=== PATIENT | female | born 1990 | race Caucasian/White ===

== ENCOUNTER 2022-04-20 14:55 | Emergency (ER) | payer SELFPAY ==
[~2022-04-20] VITALS: Ht 162.6 cm; Wt 80.0 kg
[2022-04-20 15:25] VITALS: BP 131/87
[2022-04-20 18:24] LABS: CLARITY URINE TURBID (CLEAR); COLOR URINE RED (YELLOW); KETONES URINE NEGATIVE (NEGATIVE); LEUKOCYTE ESTERASE URINE 3+ (NEGATIVE); NITRITE URINE POSITIVE (NEGATIVE); OCCULT BLOOD URINE 2+ (NEGATIVE); PH URINE 8.5 (4.5-8.0); PROTEIN URINE 2+ (NEGATIVE); SPECIFIC GRAVITY URINE 1.019 (1.005-1.030); UROBILINOGEN URINE 0.2 E.U./dL (0.2-1.0)
[2022-04-20] MEDS ORDERED: CEFP200T13 MT (18:34)
[2022-04-20 18:43] LABS: UCG SCREEN NEGATIVE
[2022-04-20] MEDS ORDERED: CEFTRIAXONE SODIUM 1 G/VIAL IM ONE (18:45)
[2022-04-20] MEDS ORDERED: LIDOCAINE HCL 1% 20ML VIAL (Pyxis) INJ INFIL ONE (18:45)
== END 2022-04-20 19:13 | disposition home or self-care (01) ==
LOC: ER 14:55
DX: N39.0 Urinary tract infection, site not specified (principal); Z97.5 Presence of (intrauterine) contraceptive device; Z87.440 Personal history of urinary (tract) infections
CPT/HCPCS: 81003; 81025; 87077; 87086; 87186; 96372; 99283; J0696; J3490